=== PATIENT | male | born 1935 | race Caucasian/White ===

== ENCOUNTER → 2016-11-11 | Outpatient (CLI) | payer MEDICARE, OTHER ==
--- NOTE | 2016-11-11 13:13 | KCIC ---
PROCEDURE Renal sonogram. HISTORY Urinary retention. TECHNIQUE Sonographic imaging of the kidneys and bladder was performed. COMPARISON None. FINDINGS The right kidney measures 11.5 cm pole to pole and the left kidney measures 12.5 cm pole to pole. There is a 2.4 cm cyst within the superior lateral right kidney. No solid renal lesion is seen. There is no hydronephrosis. The prostate is enlarged, with a volume of 79 cc. The prevoid bladder volume is 91 cc and the postvoid bladder volume is 58 cc. IMPRESSION 1. 2.4 cm right renal cyst. 2. Prostatomegaly. 3. 58 cc postvoid bladder residual. Electronically signed by: Lata Vides (Nov 11, 2016 13:11:58)
== END | disposition home or self-care (01) ==
LOC: KCIC US 12:16
PROVIDERS: ATTEND Urology
DX: N40.0 Benign prostatic hyperplasia without lower urinary tract symptoms (principal); R33.9 Retention of urine, unspecified
CPT/HCPCS: 76770

== ENCOUNTER → 2019-09-23 | Outpatient (CLI) | payer MEDICARE, OTHER ==
--- NOTE | 2019-09-23 19:39 | KCIC ---
Examination: CT CHEST WO CONTRAST History: Quit smoking 30 years ago, nonproductive cough Comparison/Correlation: None Findings: Axial images of the chest were obtained without contrast. Sagittal and coronal reformatted images were provided. Moderate-sized left pleural effusion is present. Small right pleural effusion noted. Coronary arterial calcifications noted. Artery bypass graft with calcific involvement noted. Transcatheter aortic valve implant noted. Elevated cardiomegaly is present. ICD with associated leads noted. Tracheobronchial tree is unremarkable. Slight pulmonary vasculature congestion noted. No enlarged thoracic lymph nodes. There is a calcified granuloma at the left lung base posteriorly is present. 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 This raises question of diffuse intrahepatic skeletal hyperostosis. Bony structures are otherwise unremarkable for the age of the patient. Calcific involvement of upper abdominal arterial vasculature is present. Small hiatal hernia noted. Impression: Bilateral pleural effusions greater on the left. Dilated cardiomegaly and slight pulmonary vasculature congestion. CHF. Hiatal hernia. PQRS Compliance Statement: One or more of the following individualized dose reduction techniques were utilized for this examination: 1. Automated exposure control 2. Adjustment of the mA and/or kV according to patient size 3. Use of iterative reconstruction technique Electronically signed by: David Gutierrez MD (09/23/2019 7:36 PM) [facility]
== END ==
LOC: KCIC CT 09:37
PROVIDERS: ATTEND Internal Medicine Critical Care Medicine
DX: J90 Pleural effusion, not elsewhere classified (principal); I50.9 Heart failure, unspecified; J84.10 Pulmonary fibrosis, unspecified; K44.9 Diaphragmatic hernia without obstruction or gangrene; I25.10 Atherosclerotic heart disease of native coronary artery without angina pectoris; I51.7 Cardiomegaly
CPT/HCPCS: 71250

== ENCOUNTER 2020-05-25 07:02 | Outpatient (CLI) | payer MEDICARE, OTHER ==
[2020-05-25] VITALS (8 sets, daily range): BP systolic 70–80; BP diastolic 43–57
[~2020-05-25] VITALS: Ht 182.9 cm; Wt 86.2 kg
[~2020-05-25 07:02] MED LIST: ALPR0.25 PO; AMIO200T4 PO; APIX2.5T PO; B CO1TAB10 PO; DUTA0.5C PO; FURO40TA4 PO; LEVO200T5 PO; MELA; METO25TA4 PO; OMEP20CA16 PO; PAXIL; TAMS0.4C97 PO; TRAZ
[2020-05-25 07:45] LABS: BASO % 1 % (0-3); EOS # 0.1 x10^3/uL (0.0-0.7); EOS % 1 % (0-3); HEMOGLOBIN 12.4 g/dL (13.0-17.5); LYMPH # 0.8 x10^3/uL (1.0-4.8); LYMPH % 14 % (24-48); MEAN CORPUSCULAR HEMOGLOBIN 34 pg (25-35); MEAN CORPUSCULAR HGB CONC 33 g/dL (31-37); MEAN CORPUSCULAR VOLUME 103 fL (79-100); MONO # 0.6 x10^3/uL (0.0-1.1); MONO % 11 % (0-9); NEUT # 4.3 x10^3/uL (1.8-7.7); NEUT % 73 % (31-73); PLATELET COUNT 64 x10^3/uL (140-400); RED BLOOD COUNT 3.69 x10^6/uL (4.30-5.70); RED CELL DISTRIBUTION WIDTH 17.5 % (11.5-14.5); WHITE BLOOD COUNT 5.9 x10^3/uL (4.0-11.0)
[2020-05-25 07:52] LABS: PROTHROMBIN TIME PATIENT 15.1 SEC (11.7-14.0)
[2020-05-25] MEDS ORDERED: LIDOCAINE WITH 8.4% SOD BICARB 3 ML DISP.SYRIN. ONE (08:06)
[2020-05-25] MEDS ORDERED: LIDOCAINE WITH 8.4% SOD BICARB 3 ML DISP.SYRIN. INJ ONE (08:15)
[2020-05-25] MEDS ORDERED: ONDA4TAB7 PO (08:54)
[2020-05-25] MEDS ORDERED: POLY17PO29 PO (08:54)
[2020-05-25] MEDS ORDERED: TRAZ-118 PO (08:54)
[2020-05-25] MEDS ORDERED: MIDO5TAB4 PO (08:54)
[2020-05-25] MEDS ORDERED: MIDO2.5T PO (09:15)
--- NOTE | 2020-05-25 10:14 | RAD ---
EXAM: CHEST AP ONLY INDICATION: Reason: post thoracentesis / Spl. Instructions: / History: . TECHNIQUE: Single view COMPARISON: 03/15/2020 16 chest FINDINGS: Right jugular approach dual-lumen dialysis catheter remains present along with a left chest multichamber AICD. Heart is enlarged, similar to prior. Post CABG and aortic valve replacement surgical changes are redemonstrated. The great vessels appear unremarkable. There is no hilar or mediastinal mass. Lungs show improved aeration following interval thoracentesis with residual moderate atelectatic changes at the bases bilaterally, left greater than right. There is a residual small to moderate left pleural effusion and trace right pleural effusion. No pneumothorax. There are no significant osseous abnormalities. IMPRESSION: No pneumothorax post left thoracentesis with improved aeration of the left lung. Electronically signed by: Mellisa Rivera MD (05/25/2020 10:11 AM) [id number]
--- NOTE | 2020-05-25 10:22 | NUR ---
pt A&O x4.tolerating po well. states he feels he can breath much better now. denies any pain,nausea or dizziness at this time. b/p remains low. pt states that his sb/p runs [id number]'s most days. he did take his midodrine this am before coming in. dressing on left post lung site is clean and dry. discussed anticipated increased frequency associated with chronic pleural effusions . d/c instructions given and questions answered. out to vehicle per w/c, family to drive him home.
--- NOTE | 2020-05-25 16:55 | RAD ---
Ultrasound-guided left-sided thoracentesis 05/25/2020 2:51 PM Indication: L PLEURAL EFFUSION Procedure: Informed consent was obtained. A timeout procedure was performed. Sonographic evaluation of the left chest was performed demonstrating moderate pleural effusion. The left posterior chest was prepped and draped in sterile fashion. 1% lidocaine without epinephrine was administered for local anesthesia. Real-time ultrasonographic guidance was used in passing a [employer] catheter into the left pleural space. 1.5 L of serosanguineous pleural fluid was removed. Samples of fluid were sent to the lab for further evaluation per ordering physician request. The catheter was removed and pressure held to achieve hemostasis. A sterile dressing was applied. No immediate complications were identified. The patient tolerated the procedure well. Impression: Left sided ultrasound-guided thoracentesis
== END 2020-05-25 10:22 | disposition home or self-care (01) ==
LOC: INTRAD 07:02
PROVIDERS: ATTEND Internal Medicine
DX: J90 Pleural effusion, not elsewhere classified (principal); Z88.8 Allergy status to other drugs, medicaments and biological substances; Z87.891 Personal history of nicotine dependence; Z79.899 Other long term (current) drug therapy
CPT/HCPCS: 32555; 36415; 71045; 85025; 85610; C1892; J3490